=== PATIENT | female | born 1970 | race African-American/Black ===

== ENCOUNTER 2018-09-21 03:50 | Emergency (ER) | payer SELFPAY ==
[~2018-09-21] VITALS: Ht 172.7 cm; Wt 130.0 kg
[2018-09-21] MEDS ORDERED: SODIUM CHLORIDE 0.9% 1,000 ML IV ONE (04:19)
[2018-09-21] MEDS ORDERED: ONDANSETRON HCL 4MG/2ML INJ IV STA (04:19)
[2018-09-21] MEDS ORDERED: LEVETIRACETAM 1000MG/100ML 100 ML IV ONE (04:30)
[2018-09-21 04:37] LABS: BASOPHILS % 0.9 % (0.0-2.0); EOSINOPHILS % 2.2 % (0.0-5.0); HEMATOCRIT. 40.8 % (36.0-48.0); HEMOGLOBIN. 14.1 g/dL (12.0-16.0); LYMPHOCYTES % 25.2 % (20.0-50.0); MEAN CORPUSCULAR HEMOGLOBIN 33.3 pg (28.0-32.0); MEAN CORPUSCULAR VOLUME 96.7 fL (81.0-99.0); MEAN PLATELET VOLUME 7.6 fl (7.4-10.4); MONOCYTES % 4.6 % (2.0-8.0); NEUTROPHILS % 67.1 % (40.0-76.0); PLATELET 214 x1000/uL (130-400); RED BLOOD CELL COUNT 4.22 mill/uL (4.2-5.4); RED CELL DISTRIBUTION WIDTH 14.6 % (11.6-14.6)
[2018-09-21 04:40] LABS: CHLORIDE 108 mEq/L (98-107)
[2018-09-21 04:44] LABS: ETHANOL BLOOD < 10 mg/dL
[2018-09-21 05:31] LABS: CLARITY URINE CLEAR (CLEAR); COLOR URINE YELLOW (YELLOW); KETONES URINE TRACE (NEGATIVE); LEUKOCYTE ESTERASE URINE NEGATIVE (NEGATIVE); NITRITE URINE NEGATIVE (NEGATIVE); OCCULT BLOOD URINE 2+ (NEGATIVE); PROTEIN URINE 1+ (NEGATIVE); SPECIFIC GRAVITY URINE 1.021 (1.005-1.030)
[2018-09-21 05:40] LABS: *AMPHETAMINES SCREEN URINE NEGATIVE (NEGATIVE)
[2018-09-21 05:41] LABS: *BARBITURATES SCREEN URINE NEGATIVE (NEGATIVE); *BENZODIAZEPINES SCREEN URINE NEGATIVE (NEGATIVE); *COCAINE SCREEN URINE NEGATIVE (NEGATIVE); METHADONE URINE SCREEN NEGATIVE (NEGATIVE); PHENCYCLIDINE URINE SCREEN NEGATIVE (NEGATIVE)
[2018-09-21 05:47] LABS: CANNABINOID URINE SCREEN PRESUMTIVE POSITIVE (NEGATIVE); OPIATES URINE SCREEN PRESUMTIVE POSITIVE (NEGATIVE)
[2018-09-21 05:56] VITALS: BP 127/74
== END 2018-09-21 06:02 | disposition home or self-care (01) ==
LOC: ER 03:50 → CANBEDREQ 10:40
DX: R56.9 Unspecified convulsions (principal); Z88.0 Allergy status to penicillin
CPT/HCPCS: 36415; 80053; 80305; 80320; 81003; 81025; 83880; 84484; 85025; 96365; 96375; 99283; J1953; J2405; J7030; G0480

== ENCOUNTER 2023-11-03 22:54 | Emergency (ER) | payer OTHER ==
[~2023-11-03] VITALS: Ht 167.6 cm; Wt 116.0 kg
[2023-11-03 23:11] VITALS: BP 134/71; PULSE 94; RESP 16; TEMP 98; O2SAT 100
[2023-11-03] MEDS ORDERED: LIDOCAINE HCL 1% 20ML VIAL INFIL ONE (23:45)
[2023-11-04] MEDS ORDERED: CLIN-194 MT (00:01)
[2023-11-04] MEDS ORDERED: HYDR-4001 MT (01:39)
== END 2023-11-04 02:25 | disposition home or self-care (01) ==
LOC: ER 22:54
DX: K04.7 Periapical abscess without sinus (principal); E78.00 Pure hypercholesterolemia, unspecified; Z98.890 Other specified postprocedural states
CPT/HCPCS: 41800; 99284; J3490; Z7610; 10060; 99283